=== PATIENT | female | born 1980 | race American Indian/Alaskan Native ===

== ENCOUNTER 2020-04-17 12:47 | Outpatient (CLI) | payer BC, MEDICAID ==
[2020-04-17] MEDS ORDERED: LACTATED RINGERS 1,000 ML IV SCH (14:00)
[2020-04-17 14:15] LABS: Hematocrit 36.7 % (30.3-42.9); Hemoglobin 12.2 gm/dl (10.1-14.3); Mean Corpuscular HGB Conc 33 % (30-34); Mean Corpuscular Volume 92 fl (79-97); Platelet Count 185 K/mm3 (140-440); Red Blood Count 3.99 M/mm3 (3.65-5.03); Red Cell Distribution Width 13.8 % (13.2-15.2)
[2020-04-17 14:35] LABS: Alanine Aminotransferase 18 units/L (7-56); Uric Acid 5.9 mg/dL (3.5-7.6)
--- NOTE | 2020-04-17 15:17 | Event Note ---
Date: 04/17/20 [facility] labs WNL, AST borderline elevated at 41 MALISSA <140/90, most recent 110/70 pt asymptomatic, will d/c to home repeat labs in one week and closely monitor BPs Sigifredo Howe MD
[2020-04-17 15:27] VITALS: BP 131/72
== END 2020-04-17 15:56 | disposition home or self-care (01) ==
LOC: TRG 12:47 → APU 12:49 → TRG 15:56
PROVIDERS: ATTEND Obstetrics & Gynecology
DX: O13.3 Gestational [pregnancy-induced] hypertension without significant proteinuria, third trimester (principal); Z3A.36 36 weeks gestation of pregnancy
CPT/HCPCS: 36415; 59025; 82565; 83615; 84450; 84460; 84550; 85027

== ENCOUNTER 2020-04-29 12:32 | Outpatient (CLI) | payer BC, MEDICAID ==
[2020-04-29 13:51] LABS: Bacteria,Urine 3+ /HPF (Negative); Bilirubin,Urine NEG (Negative); Blood,Urine NEG (Negative); Color,Urine Yellow (Yellow); Mucus,Urine FEW /HPF; Protein,Urine <15 mg/dL mg/dL (Negative); Urobilinogen,Urine < 2.0 mg/dL (<2.0)
[2020-04-29] MEDS ORDERED: LACTATED RINGERS 1,000 ML IV SCH (14:00)
[2020-04-29 14:20] LABS: Hematocrit 36.5 % (30.3-42.9); Hemoglobin 12.1 gm/dl (10.1-14.3); Mean Corpuscular HGB Conc 33 % (30-34); Mean Corpuscular Volume 92 fl (79-97); Platelet Count 195 K/mm3 (140-440); Red Blood Count 3.98 M/mm3 (3.65-5.03); Red Cell Distribution Width 13.9 % (13.2-15.2)
[2020-04-29 14:43] LABS: Alanine Aminotransferase 16 units/L (7-56)
[2020-04-29 15:10] LABS: Uric Acid 5.9 mg/dL (3.5-7.6)
[2020-04-29 15:29] VITALS: BP 132/57
== END 2020-04-29 15:44 | disposition home or self-care (01) ==
LOC: TRG 12:32 → APU 12:33 → TRG 15:44
PROVIDERS: ATTEND Obstetrics & Gynecology
DX: O16.3 Unspecified maternal hypertension, third trimester (principal); Z3A.37 37 weeks gestation of pregnancy
CPT/HCPCS: 36415; 59025; 81001; 82565; 83615; 84450; 84460; 84550; 85027; 87086

== ENCOUNTER 2020-05-07 08:35 | Inpatient (IN) | payer BC, MEDICAID ==
[2020-05-07] MEDS ORDERED: NalbUPHINE 10 MG/1 ML INJ IV PRN (11:22)
[2020-05-07] MEDS ORDERED: DINOPROSTONE 10 MG VAG SUPP VG ONE (11:22)
[2020-05-07] MEDS ORDERED: TERBUTALINE 1 MG/1 ML INJ SUB-Q PRN (11:22)
[2020-05-07] MEDS ORDERED: LIDOCAINE (2%) 20 MG/1 ML VIAL 20 ML MDV INFILTRATI ONE (11:22)
[2020-05-07] MEDS ORDERED: ePHEDrine SULFATE 50 MG/1 ML INJ IV PRN (11:22)
[2020-05-07] MEDS ORDERED: BUTORPHANOL 2 MG/1 ML INJ IV PRN ×2 (11:22)
[2020-05-07] MEDS ORDERED: MINERAL OIL 30 ML ORAL LIQD PO PRN (11:22)
[2020-05-07] MEDS ORDERED: fentaNYL 100 MCG/2 ML INJ IV PRN (11:22)
[2020-05-07] MEDS ORDERED: LACTATED RINGERS 1,000 ML IV SCH (11:30)
[2020-05-07 11:47] LABS: Hematocrit 35.6 % (30.3-42.9); Hemoglobin 11.9 gm/dl (10.1-14.3); Mean Corpuscular HGB Conc 34 % (30-34); Mean Corpuscular Volume 91 fl (79-97); Platelet Count 174 K/mm3 (140-440); Red Cell Distribution Width 13.6 % (13.2-15.2)
[2020-05-07] MEDS ORDERED: OXYTOCIN DRIP 30 UNITS/500 ML BAG IV SCH ×2 (12:00)
[2020-05-07] MEDS ORDERED: PRENATAL VIT27-FE FUMARATE-FOLIC ACID VIT TAB PO SCH (12:00)
--- NOTE | 2020-05-07 19:42 | History and Physical Report ---
History of Present Illness Date of examination: 05/07/20 Date of admission: 05/07/20 08:36 Chief complaint: "I'm here for an induction" Pt denies VB and admits to pos FM. History of present illness: 39 y/o single AA female presented to [facility] at 39 wks for an IOL r/t obesity and AMA. She initiated her pnc at [facility] location at 10 wks gestation. Pt was co managed by MADDIE. Her preg has been complicated by morbid obesity and pos GC which was treated with Rocephin and Azith. Pt's med/surg/social/family hx is unremarkable and her GBS is neg. Pt states her biggest baby delivered was 8 lbs 15 oz. Pt was admitted to L&D for an IOL. 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 Family/Genetic History: none Social history: single, full code - Obstetrical History Expected Date of Delivery: 05/14/20 Actual Gestation: 39 Week(s) 0 Day(s) : 5 Para: 4 Hx # Term Pregnancies: 4 Number of Pregnancies: 0 Spontaneous Abortions: 0 Induced : 0 Number of Living Children: 4 Medications and Allergies Allergies Allergy/AdvReac Type Severity Reaction Status Date / Time No Known Allergies Allergy Verified 05/07/20 10:51 Home Medications Medication Instructions Recorded Confirmed Last Taken Type Pnv,Calcium 72/Iron/Folic Acid 1 tab PO DAILY 10/21/15 05/07/20 05/06/20 10:00 History [ Plus Tablet] Active Meds: Active Medications Butorphanol Tartrate (Stadol) 1 mg IV Q2H PRN PRN Reason: Pain, Moderate(4-6) LABOR PAIN Butorphanol Tartrate (Stadol) 2 mg IV Q2H PRN PRN Reason: Pain , Severe (7-10) Ephedrine Sulfate (Ephedrine Sulfate) 10 mg IV Q2M PRN PRN Reason: Hypotension Fentanyl (Sublimaze) 100 mcg IV Q2H PRN PRN Reason: Pain,Severe (7-10) LABOR PAIN Oxytocin/Sodium Chloride (Pitocin/Ns 30 Unit/500ml) 30 units in 500 mls @ 2 mls/hr IV TITR MIGUEL; Protocol Lactated Ringer's (Lactated Ringers) 1,000 mls @ 125 mls/hr IV DIRECT MIGUEL Oxytocin/Sodium Chloride (Pitocin/Ns 30 Unit/500ml) 30 units in 500 mls @ 40 mls/hr IV TITR MIGUEL; Protocol Mineral Oil (Mineral Oil) 30 ml PO QHS PRN PRN Reason: Constipation Multivitamins/Iron/Calcium ( Vitamin) 1 each PO DAILY MIGUEL Nalbuphine HCl (Nalbuphine) 10 mg IV Q2H PRN PRN Reason: Pain, Moderate (4-6) Terbutaline Sulfate (Brethine) 0.25 mg SUB-Q ONCE PRN PRN Reason: Hyperstimulation/Hypertonicity Review of Systems All systems: negative Eyes: deferred Ears, nose, mouth and throat: deferred Breasts: normal Genitourinary: normal appearance Rectal Exam: deferred - Vital Signs Vital signs: Vital Signs Pulse Pulse Ox 88 99 05/07/20 09:35 05/07/20 09:35 Temp Pulse Resp BP Pulse Ox 98.3 F 86 20 112/64 99 05/07/20 15:45 05/07/20 19:17 05/07/20 15:45 05/07/20 19:17 05/07/20 10:10 - Physical Exam Breasts: Positive: normal Abdomen: Positive: normal appearance, soft, normal bowel sounds Genitourinary (Female): Positive: normal external genitalia, normal perenium Vulva: both: normal Adnexa: both: normal Anus/Rectum: Positive: normal perianal skin Extremities: Positive: normal - Obstetrical FHR: auscultation normal, category 1 Uterine Contraction Monitor Mode: External Cervical Dilatation: 0 Cervical Effacement Percentage: 0 station: -4 Uterine Contraction Frequency (min): NONE Uterine Contraction Pattern: Absent Uterine Tone Measurement Phase: Resting Results Result Diagrams: 05/07/20 09:50 All other labs normal. Assessment and Plan A: IUP@ 39 wks AMA , Morbid obesity P: Admit for a cervidil IOL Continuous monitoring pain med/Epidural prn Expectant mtg - Patient Problems (1) Morbid obesity Current Visit: Yes Status: Acute (2) AMA (advanced maternal age) multigravida 35+ Current Visit: Yes Status: Acute
[2020-05-08] MEDS: fentaNYL-BUPIV 2 MCG/ML-0.125% 200 MCG/100 ML BAG EPIDURAL SCH ×2 (05:00→13:59)
[2020-05-08] MEDS ORDERED: NALOXONE 2 MG/2 ML INJ IV PRN (05:18)
[2020-05-08] MEDS ORDERED: ePHEDrine SULFATE 50 MG/1 ML INJ IV PRN (05:18)
--- NOTE | 2020-05-08 05:21 | Progress Note ---
Labor Epidural - Labor Epidural Start Time: 04:48 Stop Time: 04:53 Performed by:: RICHARD BUNDY Procedure: Patient is requesting epidural for labor pain. H&P, and labs reviewed. Procedure explained, questions answered, consent obtained. Patient in sitting position with blood pressure cuff and pulse ox on and working. Timeout performed immediately before start of procedure. Sterile betadine prep/drape. 3 mL 1% lidocaine skin wheal at L[3]-L[4]. 18-gauge [employer] epidural needle advanced to [id number] with saline at 10 cm. Epidural dexmedetomidine [30] mcg administered. Epidural catheter advanced to 15 cm, negative aspiration for blood and csf, negative test dose 3 ml 1.5% lidocaine with epinephrine. Sterile steri-strips and tegaderm applied, followed by tape reinforcement. Patient tolerated procedure well.
--- NOTE | 2020-05-08 05:21 | Anesthesia Consultation ---
Anesthesia Consult and Med Hx Date of service: 05/08/20 - Airway Anesthetic Teeth Evaluation: Good ROM Head & Neck: Adequate Mental/Hyoid Distance: Adequate Mallampati Class: Class II Intubation Access Assessment: Probably Good - Pulmonary Exam CTA: Yes - Cardiac Exam Cardiac Exam: RRR - Pre-Operative Health Status ASA Pre-Surgery Classification: ASA3 Proposed Anesthetic Plan: Epidural - Pulmonary Hx Smoking: Yes (Quit in 2014) Hx Asthma: No COPD: No Hx Pneumonia: No - Cardiovascular System Hx Hypertension: No - Central Nervous System Hx Seizures: No Hx Psychiatric Problems: No - Endocrine Hx Renal Disease: No Hx End Stage Renal Disease: No Hx Hypothyroidism: No Hx Hyperthyroidism: No - Hematic Hx Anemia: No Hx Sickle Cell Disease: No - Other Systems Hx Alcohol Use: No Hx Obesity: Yes (BMI 47.6)
--- NOTE | 2020-05-08 09:51 | Progress Note ---
Assessment and Plan - Patient Problems (1) Encounter for induction of labor Current Visit: Yes Status: Acute Plan to address problem: Continue labor orders AROM @ 1025, clear fluids, tolerated well Continue to titrate Pitocin as tolerated Anticipate (2) Morbid obesity Current Visit: Yes Status: Acute (3) AMA (advanced maternal age) multigravida 35+ Current Visit: Yes Status: Acute Subjective - Subjective Date of service: 05/08/20 Principal diagnosis: IOL Interval history: See admission H & P and OB progress notes Patient reports: movement normal, contractions ("can feel them"), no vaginal bleeding Objective - Vital Signs Vital Signs: Vital Signs - 12hr 05/07/20 05/07/20 05/07/20 21:47 22:07 22:12 Temperature Pulse Rate 87 91 H 77 Respiratory Rate Blood Pressure O2 Sat by Pulse 96 99 97 Oximetry 05/07/20 05/07/20 05/07/20 22:17 22:22 22:27 Temperature Pulse Rate 79 77 75 Respiratory Rate Blood Pressure O2 Sat by Pulse 97 96 96 Oximetry 05/07/20 05/07/20 05/07/20 22:32 22:37 22:42 Temperature Pulse Rate 76 87 76 Respiratory Rate Blood Pressure O2 Sat by Pulse 95 94 94 Oximetry 05/07/20 05/07/20 05/07/20 22:47 22:49 22:52 Temperature Pulse Rate 81 84 79 Respiratory Rate Blood Pressure O2 Sat by Pulse 96 94 93 Oximetry 05/07/20 05/07/20 05/07/20 22:54 22:57 23:00 Temperature Pulse Rate 80 85 79 Respiratory Rate Blood Pressure O2 Sat by Pulse 94 92 94 Oximetry 05/07/20 05/07/20 05/07/20 23:02 23:07 23:12 Temperature Pulse Rate 82 79 82 Respiratory Rate Blood Pressure O2 Sat by Pulse 95 96 96 Oximetry 05/07/20 05/07/20 05/07/20 23:13 23:29 23:34 Temperature Pulse Rate 83 82 75 Respiratory Rate Blood Pressure O2 Sat by Pulse 94 98 97 Oximetry 05/07/20 05/07/20 05/07/20 23:39 23:44 23:49 Temperature Pulse Rate 78 85 77 Respiratory Rate Blood Pressure O2 Sat by Pulse 98 98 96 Oximetry 05/07/20 05/07/20 05/08/20 23:54 23:59 00:04 Temperature Pulse Rate 79 83 84 Respiratory Rate Blood Pressure O2 Sat by Pulse 98 96 97 Oximetry 05/08/20 05/08/20 05/08/20 04:54 04:59 05:04 Temperature Pulse Rate 88 88 79 Respiratory Rate Blood Pressure 142/85 O2 Sat by Pulse 96 97 97 Oximetry 05/08/20 05/08/20 05/08/20 05:09 05:14 05:19 Temperature Pulse Rate 84 91 H 79 Respiratory Rate Blood Pressure O2 Sat by Pulse 97 95 95 Oximetry 05/08/20 05/08/20 05/08/20 05:24 05:29 05:32 Temperature Pulse Rate 84 81 72 Respiratory Rate Blood Pressure 141/83 O2 Sat by Pulse 95 98 Oximetry 05/08/20 05/08/20 05/08/20 05:34 05:36 05:39 Temperature Pulse Rate 77 77 77 Respiratory Rate Blood Pressure O2 Sat by Pulse 95 94 94 Oximetry 05/08/20 05/08/20 05/08/20 05:43 05:44 05:46 Temperature Pulse Rate 71 79 75 Respiratory Rate Blood Pressure 142/79 O2 Sat by Pulse 94 94 Oximetry 05/08/20 05/08/20 05/08/20 05:49 05:54 05:59 Temperature Pulse Rate 76 75 71 Respiratory Rate Blood Pressure O2 Sat by Pulse 94 90 86 Oximetry 05/08/20 05/08/20 05/08/20 06:01 06:04 06:09 Temperature Pulse Rate 75 73 76 Respiratory Rate Blood Pressure 138/73 O2 Sat by Pulse 84 83 L Oximetry 05/08/20 05/08/20 05/08/20 06:13 06:14 06:18 Temperature Pulse Rate 75 77 74 Respiratory Rate Blood Pressure 136/74 O2 Sat by Pulse 94 97 Oximetry 05/08/20 05/08/20 05/08/20 06:19 06:24 06:27 Temperature Pulse Rate 74 74 70 Respiratory Rate Blood Pressure O2 Sat by Pulse 96 95 94 Oximetry 05/08/20 05/08/20 05/08/20 06:29 06:31 06:34 Temperature Pulse Rate 76 73 75 Respiratory Rate Blood Pressure 135/81 O2 Sat by Pulse 95 98 Oximetry 05/08/20 05/08/20 05/08/20 06:36 06:39 06:42 Temperature Pulse Rate 67 74 75 Respiratory Rate Blood Pressure O2 Sat by Pulse 94 99 94 Oximetry 05/08/20 05/08/20 05/08/20 06:44 06:46 06:48 Temperature Pulse Rate 73 94 H 91 H Respiratory Rate Blood Pressure 134/80 O2 Sat by Pulse 98 94 Oximetry 05/08/20 05/08/20 05/08/20 06:49 06:53 06:54 Temperature Pulse Rate 81 81 72 Respiratory Rate Blood Pressure O2 Sat by Pulse 97 94 95 Oximetry 05/08/20 05/08/20 05/08/20 06:59 07:01 07:04 Temperature Pulse Rate 86 88 80 Respiratory Rate Blood Pressure 145/81 O2 Sat by Pulse 97 97 Oximetry 05/08/20 05/08/20 05/08/20 07:09 07:14 07:17 Temperature Pulse Rate 81 86 78 Respiratory Rate Blood Pressure 157/86 O2 Sat by Pulse 95 95 Oximetry 05/08/20 05/08/20 05/08/20 07:19 07:24 07:29 Temperature Pulse Rate 73 74 67 Respiratory Rate Blood Pressure O2 Sat by Pulse 97 96 98 Oximetry 05/08/20 05/08/20 05/08/20 07:30 07:32 07:34 Temperature 98.1 F Pulse Rate 73 83 Respiratory 16 Rate Blood Pressure 139/77 O2 Sat by Pulse 98 Oximetry 05/08/20 05/08/20 05/08/20 07:39 07:44 07:48 Temperature Pulse Rate 86 74 75 Respiratory Rate Blood Pressure 131/74 O2 Sat by Pulse 96 96 Oximetry 05/08/20 05/08/20 05/08/20 07:49 07:54 07:58 Temperature Pulse Rate 79 76 86 Respiratory Rate Blood Pressure O2 Sat by Pulse 96 97 94 Oximetry 05/08/20 05/08/20 05/08/20 07:59 08:04 08:09 Temperature Pulse Rate 72 86 85 Respiratory Rate Blood Pressure O2 Sat by Pulse 99 96 98 Oximetry 05/08/20 05/08/20 05/08/20 08:14 08:19 08:24 Temperature Pulse Rate 72 77 65 Respiratory Rate Blood Pressure O2 Sat by Pulse 97 97 96 Oximetry 05/08/20 05/08/20 05/08/20 08:29 08:34 08:39 Temperature Pulse Rate 79 66 111 H Respiratory Rate Blood Pressure O2 Sat by Pulse 95 96 100 Oximetry 05/08/20 05/08/20 05/08/20 08:44 08:49 08:54 Temperature Pulse Rate 79 82 76 Respiratory Rate Blood Pressure O2 Sat by Pulse 100 99 97 Oximetry 05/08/20 05/08/20 05/08/20 08:59 09:00 09:04 Temperature Pulse Rate 71 75 73 Respiratory Rate Blood Pressure 138/77 O2 Sat by Pulse 97 97 Oximetry 05/08/20 05/08/20 05/08/20 09:09 09:14 09:19 Temperature Pulse Rate 73 92 H 86 Respiratory Rate Blood Pressure O2 Sat by Pulse 97 98 98 Oximetry 05/08/20 05/08/20 05/08/20 09:24 09:25 09:29 Temperature 98.4 F Pulse Rate 100 H 90 Respiratory 18 Rate Blood Pressure O2 Sat by Pulse 93 100 Oximetry 05/08/20 05/08/20 05/08/20 09:34 09:39 09:44 Temperature Pulse Rate 83 95 H 82 Respiratory Rate Blood Pressure O2 Sat by Pulse 97 97 97 Oximetry - Exam Breasts: deferred Cardiovascular: Regular rate Lungs: Normal air movement FHR: category 1 Uterine Contraction Monitor Mode: External Cervical Dilatation: 4.5 (vertex) Cervical Effacement Percentage: 80 station: -2 Uterine Contraction Frequency (min): 3 Uterine Contraction Pattern: Irregular Uterine Tone Measurement Phase: Resting Uterine Contraction Intensity: Mild Extremities: edema - Labs Labs: Laboratory Results - last 24 hr 05/07/20 05/07/20 09:50 09:50 WBC 6.1 RBC 3.90 Hgb 11.9 Hct 35.6 MCV 91 MCH 31 MCHC 34 RDW 13.6 Plt Count 174 Blood Type O POSITIVE Antibody Screen Negative
[2020-05-08] MEDS ORDERED: PNV CALCIUM PO SCH (10:00)
[2020-05-08] MEDS ORDERED: IRON PO SCH (10:00)
[2020-05-08] MEDS ORDERED: FOLIC ACID PO SCH (10:00)
[2020-05-08] MEDS ORDERED: LIDOCAINE (2%) 20 MG/1 ML VIAL 20 ML MDV INFILTRATI NR (11:15)
[2020-05-08] MEDS ORDERED: PROMETHAZINE 25 MG TAB PO PRN (16:08)
[2020-05-08] MEDS ORDERED: ONDANSETRON 4 MG/2 ML INJ IV PRN (16:08)
[2020-05-08] MEDS ORDERED: WITCH HAZEL/ GLYCERIN PAD TP PRN (16:08)
[2020-05-08] MEDS ORDERED: diphenhydrAMINE 25 MG CAP PO PRN (16:08)
[2020-05-08] MEDS ORDERED: LANOLIN/ZINC/DIMETHICONE (LANSINOH) 7 GM TP PRN (16:08)
[2020-05-08] MEDS ORDERED: MAGNESIUM HYDROXIDE (MOM) ORAL LIQD UDC PO PRN (16:08)
--- NOTE | 2020-05-08 16:26 | Procedure Note ---
OB Delivery Note - Delivery Date of Delivery: 05/[birth year]/20 (1975) Surgeon: TONA WALKER (CNM) Estimated blood loss: 200cc - Vaginal Delivery presentation: vertex Delivery position: OP (LOP) Intrapartum events: none Delivery induction: cervidil Delivery augmentation: rupture of membranes (1025 - 05/08/2020) Delivery monitor: external FHT, external uterine Route of delivery: Delivery placenta: spontaneous (1559, ortiz) Delivery cord: 3 umbilical vessels Episiotomy: none Delivery laceration: none Anesthesia: epidural Delivery comments: of viable, female, quiet placed directly to maternal abdomen. Manually dried with warm blanket producing an initial cry once. Cord double clamped, cut by FOB after 1 min and handed over to awaiting NICU team. Placenta spontaneously delivered, ortiz, disposed per hospital policy. Uterus very deep, firm at U-2. Perineum intact. Mother and safe, stable and left in care of RN. - Infant A at 1 minute: 7 at 5 minutes: 8 Infant Gender: Female (Weight: 3375gms (7lbs 7ozs) 19.5 inches)
[2020-05-08] MEDS: IBUPROFEN 600 MG TAB PO SCH ×2 (16:53→23:57)
[2020-05-08] MEDS ORDERED: HYDROcodone/ACETAMINOPHEN 5-325 MG TAB PO PRN (18:30)
[2020-05-09 04:35] LABS: Hemoglobin 12.1 gm/dl (10.1-14.3)
[2020-05-09] MEDS: IBUPROFEN 600 MG TAB PO SCH ×3 (09:40→23:48)
[2020-05-09] MEDS ORDERED: HYDROcodone/ACETAMINOPHEN 5-325 MG TAB PO PRN (09:40)
--- NOTE | 2020-05-09 10:20 | Progress Note ---
Assessment and Plan A: day 1 S/P . Obesity. P: Continue current management. Encouraged ambulation. Subjective - Subjective Date of service: 05/09/20 Principal diagnosis: day 1 S/P Patient reports: appetite normal, voiding normally, pain well controlled, flatus, ambulating normally, no dizzy ambulation, no nauseated : doing well Objective - Vital Signs Latest vital signs: Vital Signs Temp Pulse Resp BP Pulse Ox 05/09/20 08:48 97.9 F 81 18 135/70 96 05/09/20 06:19 97.5 F L 89 20 125/57 97 05/09/20 01:54 98.5 F 91 H 20 147/74 94 05/08/20 23:57 20 05/08/20 22:05 98.6 F 85 18 150/77 97 05/08/20 17:54 98.7 F 92 H 129/60 96 05/08/20 17:17 93 H 95 05/08/20 17:15 90 94 05/08/20 17:12 86 136/64 94 05/08/20 17:10 90 89 05/08/20 17:07 87 93 05/08/20 17:04 89 94 05/08/20 17:02 96 H 96 05/08/20 16:57 103 H 135/62 95 05/08/20 16:53 91 H 94 05/08/20 16:52 88 94 05/08/20 16:47 92 H 96 05/08/20 16:42 91 H 126/60 95 05/08/20 16:37 89 96 05/08/20 16:32 86 130/61 94 05/08/20 16:27 100 H 163/75 97 05/08/20 16:22 102 H 97 05/08/20 16:17 104 H 167/75 95 05/08/20 16:12 105 H 170/80 97 05/08/20 16:07 106 H 96 05/08/20 16:05 99 H 120/53 05/08/20 16:02 102 H 97 05/08/20 16:00 99.7 F H 105 H 20 136/65 05/08/20 15:57 105 H 99 05/08/20 15:52 105 H 98 05/08/20 15:47 119 H 100 05/08/20 15:42 131 H 99 12/04/20 15:37 118 H 99 05/08/20 15:32 118 H 99 05/08/20 15:27 109 H 98 05/08/20 15:26 107 H 94 05/08/20 15:22 108 H 95 05/08/20 15:17 100 H 97 05/08/20 15:12 96 H 97 05/08/20 15:09 88 90 05/08/20 15:06 104 H 130/65 05/08/20 14:58 73 L 05/08/20 14:57 72 78 L 05/08/20 14:52 102 H 90 05/08/20 14:47 91 05/08/20 14:46 81 75 L 05/08/20 14:41 83 L 05/08/20 14:39 53 L 74 L 05/08/20 14:34 89 74 L 05/08/20 14:28 89 68 L 05/08/20 14:23 86 85 05/08/20 14:22 88 86 05/08/20 14:18 81 70 L 05/08/20 14:13 94 H 84 05/08/20 14:08 92 H 92 05/08/20 14:04 93 H 94 05/08/20 14:03 92 H 95 05/08/20 14:00 85 141/64 05/08/20 13:58 98 H 94 05/08/20 13:44 92 H 96 05/08/20 13:40 96 H 93 05/08/20 13:39 89 97 05/08/20 13:34 85 96 05/08/20 13:30 98.1 F 20 05/08/20 13:29 86 97 05/08/20 13:27 92 H 153/72 05/08/20 13:24 98 H 100 05/08/20 13:19 99 H 97 05/08/20 13:14 92 H 99 05/08/20 13:09 100 H 98 05/08/20 13:04 100 H 96 05/08/20 12:59 87 100 05/08/20 12:54 89 97 05/08/20 12:49 98 H 97 05/08/20 12:44 90 98 05/08/20 12:39 88 98 05/08/20 12:34 98 H 98 05/08/20 12:29 99 H 98 05/08/20 12:24 100 H 98 05/08/20 12:19 91 H 99 05/08/20 12:14 99 H 99 05/08/20 12:09 94 H 97 05/08/20 12:04 92 H 96 05/08/20 12:01 90 140/71 05/08/20 11:59 96 H 96 05/08/20 11:54 95 H 97 05/08/20 11:49 94 H 97 05/08/20 11:47 94 H 91 05/08/20 11:44 90 92 05/08/20 11:41 93 H 90 05/08/20 11:39 91 H 98 05/08/20 11:34 82 98 05/08/20 11:30 98.4 F 18 05/08/20 11:29 89 98 05/08/20 11:24 87 98 05/08/20 11:19 92 H 98 05/08/20 11:14 91 H 97 05/08/20 11:09 87 98 05/08/20 11:04 87 98 05/08/20 11:00 91 H 135/74 05/08/20 10:59 87 96 05/08/20 10:54 92 H 97 05/08/20 10:49 101 H 98 05/08/20 10:44 92 H 99 05/08/20 10:39 94 H 98 05/08/20 10:34 85 97 05/08/20 10:29 83 98 05/08/20 10:24 89 98 05/08/20 10:19 83 96 Intake and Output 05/08/20 05/09/20 05/09/20 23:59 07:59 15:59 Intake Total 840 Output Total 450 600 Balance -450 240 Intake: Intake, Free Water 840 Output: Urine 450 600 Void 450 600 Other: Total, Output Amount 450 600 # Voids Void 1 Estimated Blood Loss 200 - Exam Cardiovascular: Present: Regular rate Lungs: Present: Clear to auscultation Abdomen: Present: normal appearance, soft, normal bowel sounds. Absent: distention, tenderness, guarding, rigidity Uterus: Present: normal, firm, fundal height below umbilicus. Absent: bogginess, tenderness Extremities: Present: normal, edema (mild bilateral pedal edema). Absent: tenderness
--- NOTE | 2020-05-09 16:20 | Post Anesthesia Evaluation ---
- Post Anesthesia Evaluation Patient Participated: Yes Airway Patent: Yes Stable Respiratory Function: Yes Nausea/Vomiting: No Temp > 96.8F: Yes Pain Manageable: Yes Adequeate Hydration: Yes Anesthesia Complications: No Block Receding Appropriately: Yes
[2020-05-10] MEDS: IBUPROFEN 600 MG TAB PO SCH ×2 (05:53→13:00)
[2020-05-10 12:32] LABS: Alanine Aminotransferase 15 units/L (7-56); Albumin 3.1 g/dL (3.9-5); Blood Urea Nitrogen 7 mg/dL (7-17); Calcium 8.9 mg/dL (8.4-10.2); Hemolysis Index 4
[2020-05-10 12:33] LABS: BUN/Creatinine Ratio 12
--- NOTE | 2020-05-10 12:52 | Progress Note ---
Assessment and Plan A: day 2 S/P . Obesity. Mildly elevated blood pressures (intermittent). P: Urinalysis and PreE labs. Will consult with re: this patient when labs are back. Subjective - Subjective Date of service: 05/10/20 Principal diagnosis: day 2 S/P Interval history: Preeclamptic labs ordered. Still with some sporadically mildly elevated blood pressures. History of preE after her last baby in the period. Patient denies headache, visual disturbance, or nausea/vomiting. Patient reports: appetite normal, voiding normally, pain well controlled, flatus, ambulating normally, no dizzy ambulation, no nauseated : doing well Objective - Vital Signs Latest vital signs: Vital Signs Temp Pulse Resp BP BP Pulse Ox 05/10/20 08:40 98 F 75 20 125/50 05/10/20 05:53 20 05/10/20 01:33 97.9 F 73 20 146/79 96 05/09/20 23:48 20 05/09/20 17:15 98.1 F 18 143/79 Intake and Output 05/09/20 05/10/20 05/10/20 23:59 07:59 15:59 Intake Total 600 500 440 Balance 600 500 440 Intake: Oral 440 Intake, Free Water 600 500 Other: Total, Intake Amount 120 # Voids Void 1 1 1 - Exam Cardiovascular: Present: Regular rate Lungs: Present: Clear to auscultation Abdomen: Present: normal appearance, soft, normal bowel sounds. Absent: distention, tenderness, guarding, rigidity Uterus: Present: normal, firm, fundal height below umbilicus. Absent: bogginess, tenderness Extremities: Present: edema (mild bilateral dependent edema in feet). Absent: tenderness - Labs Labs: Abnormal lab results 05/10/20 Range/Units 10:56 Albumin 3.1 L (3.9-5) g/dL
--- NOTE | 2020-05-10 15:12 | Discharge Summary ---
Providers - Providers Date of Admission: 05/07/20 08:36 Date of discharge: 05/10/20 Attending physician: RICH WEIR Primary care physician: RICH WEIR Hospitalization Reason for admission: induction of labor Delivery: Episiotomy: none Laceration: none Other procedures: none complications: none Discharge diagnosis: IUP at term delivered baby: female Pertinent studies: Labs Hospital course: Stable hospital course. Condition at discharge: Good Disposition: DC-01 TO HOME OR SELFCARE - Discharge Diagnoses (1) Term delivered Status: Acute Plan - Provider Discharge Summary Activity: routine, no sex for 6 weeks, no heavy lifting 4 weeks, no strenuous exercise Diet: routine Instructions: routine Additional instructions: Continue taking your vitamins and iron supplements at home. Follow up at [facility] on 05/14/2020 for a BP check. Call your doctor immediately for: * Fever > 100.5 * Heavy vaginal bleeding ( >1 pad per hour) * Severe persistent headache * Shortness of breath * Reddened, hot, painful area to leg or breast - Follow up plan Follow up: RICH WEIR MD [Primary Care Provider] - 05/14/20 Forms: [place] Identification Form
[2020-05-10 16:28] VITALS: BP 115/76
== END 2020-05-10 16:56 | disposition home or self-care (01) | DRG 807 ==
LOC: TRG 08:35 → LD 08:36 → TRG 11:23 → OB 05-08 18:08
PROVIDERS: ADMIT Obstetrics & Gynecology; ATTEND Obstetrics & Gynecology
PROC: 3E033VJ Introduction of Other Hormone into Peripheral Vein, Percutaneous Approach (ICD-10-PCS; principal; 2020-05-08)
PROC: 10E0XZZ Delivery of Products of Conception, External Approach (ICD-10-PCS; 2020-05-08)
PROC: 3E0R3BZ Introduction of Anesthetic Agent into Spinal Canal, Percutaneous Approach (ICD-10-PCS; 2020-05-08)
PROC: 00HU33Z Insertion of Infusion Device into Spinal Canal, Percutaneous Approach (ICD-10-PCS; 2020-05-08)
PROC: 10907ZC Drainage of Amniotic Fluid, Therapeutic from Products of Conception, Via Natural or Artificial Opening (ICD-10-PCS; 2020-05-08)
DX: O99.214 Obesity complicating childbirth (principal); Z37.0 Single live birth; Z20.828 Contact with and (suspected) exposure to other viral communicable diseases; R03.0 Elevated blood-pressure reading, without diagnosis of hypertension; O75.89 Other specified complications of labor and delivery; E66.01 Morbid (severe) obesity due to excess calories; Z87.891 Personal history of nicotine dependence; Z3A.39 39 weeks gestation of pregnancy; Z79.899 Other long term (current) drug therapy
CPT/HCPCS: 36415; 59200; 80053; 84550; 85014; 85018; 85027; 85049; 86850; 86900; 86901; G0378; J2590; J3010; J7120; U0003